=== PATIENT | male | born 1995 | race Two or more races ===

== ENCOUNTER 2020-06-14 20:30 | Emergency (ER) | payer SELFPAY ==
[~2020-06-14] VITALS: Ht 170.2 cm; Wt 72.7 kg
[2020-06-14 22:35] VITALS: BP 159/98
--- NOTE | 2020-06-14 23:08 | PHYS DOC ---
Past Medical History Past Medical History: No Pertinent History Past Surgical History: No Surgical History Smoking Status: Unknown if ever smoked Alcohol Use: None General Adult EDM: Chief Complaint: EARACHE/EAR PAIN HPI: HPI: Patient is a 24 year old male who presents for evaluation of bilateral ear pain right side worse than left. Symptoms been progressing for the past 2 days. He had some scant drainage from his right ear as well. Patient denies any fevers or chills. Patient is otherwise benign-appearing Review of Systems: Review of Systems: Constitutional: Denies fever or chills. [] Eyes: Denies change in visual acuity. [] HENT: Denies nasal congestion or sore throat. [] Respiratory: Denies cough or shortness of breath. [] Cardiovascular: Denies chest pain or edema. [] GI: Denies abdominal pain, nausea, vomiting, bloody stools or diarrhea. [] : Denies dysuria. [] Musculoskeletal: Denies back pain or joint pain. [] Integument: Denies rash. [] Neurologic: Denies headache, focal weakness or sensory changes. [] Endocrine: Denies polyuria or polydipsia. [] Lymphatic: Denies swollen glands. [] Psychiatric: Denies depression or anxiety. [] Heart Score: Risk Factors: Risk Factors: DM, Current or recent (<one month) smoker, HTN, HLP, family history of CAD, obesity. Risk Scores: Score 0 - 3: 2.5% MACE over next 6 weeks - Discharge Home Score 4 - 6: 20.3% MACE over next 6 weeks - Admit for Clinical Observation Score 7 - 10: 72.7% MACE over next 6 weeks - Early Invasive Strategies Physical Exam: PE: Constitutional: Well developed, well nourished, mild acute distress, non-toxic appearance. [] HENT: Normocephalic, atraumatic, bilateral external ears normal, oropharynx moist, no oral exudates, nose normal, left tympanic membrane erythema, bilateral external ear tubes erythematous, right ear tender when palpated. [] Eyes: PERRL, EOMI, conjunctiva normal, no discharge. [] Neck: Normal range of motion, no tenderness, supple, no stridor. [] Cardiovascular:Heart rate regular rhythm, no murmur [] Lungs & Thorax: Bilateral breath sounds clear to auscultation [] Abdomen: Bowel sounds normal, soft, no tenderness, no masses, no pulsatile masses. [] Skin: Warm, dry, no erythema, no rash. [] Back: No tenderness. [] Extremities: No tenderness, no cyanosis, no edema. [] Neurologic: Alert and oriented, normal motor function, normal sensory function, no focal deficits noted. [] Psychologic: Affect normal, judgement normal, mood normal. [] EKG: EKG: [] Radiology/Procedures: Radiology/Procedures: [] Course & Med Decision Making: Course & Med Decision Making Pertinent Labs and Imaging studies reviewed. (See chart for details) [] Dragon Disclaimer: [employer] Disclaimer: This electronic medical record was generated, in whole or in part, using a voice recognition dictation system. [id number] patient has evidence of bilateral otitis externa and a left otitis media. Prescription for amoxicillin given. Patient also started on Cortisporin otic suspension Departure Departure Impression: Primary Impression: Otitis externa Qualified Codes: H60.313 - Diffuse otitis externa, bilateral Additional Impression: Otitis media Qualified Codes: H66.92 - Otitis media, unspecified, left ear Disposition: HOME, SELF-CARE Condition: STABLE Referrals: NO PCP (PCP) Patient Instructions: Otitis Externa, [id number], Otitis Media, Adult, [id number] Additional Instructions: Have a family doctor or primary home care giver recheck your ears in the next several days. Use the Cortisporin otic suspension 4 drops 4 times a day both ears for the next 7 days. Take antibiotic by mouth as directed Scripts Amoxicillin (AMOXICILLIN) 500 Mg Capsule 1 CAP PO Q8HRS for infection, #30 CAP Prov: SUNNY SOTO DO 06/14/20 Justicifation of Admission Dx: Justifications for Admission: Justification of Admission Dx: N/A SUNNY SOTO DO Jun 14, 2020 23:08
[2020-06-14] MEDS ORDERED: AMOX500C PO (23:22)
[2020-06-14] MEDS ORDERED: NEOMYCIN/POLYMYXIN/HC OTIC SUSPENSION 10ML BOTTLE. AU ONE (23:30)
== END 2020-06-14 23:31 | disposition home or self-care (01) ==
LOC: ER 20:30
DX: H60.313 Diffuse otitis externa, bilateral (principal); H66.92 Otitis media, unspecified, left ear
CPT/HCPCS: 99283